=== PATIENT | female | born 1990 | race Caucasian/White ===

== ENCOUNTER 2016-12-31 16:04 | Emergency (ER) | payer OTHER ==
[2016-12-31 16:14] VITALS: BP 119/66; PULSE 72; TEMP 98.3; BMI 21.9
--- NOTE | 2016-12-31 16:36 | PDOC ---
History of Present Illness - General Chief Complaint: Foreign Body (FB) Stated Complaint: EVALUATION Time Seen by Provider: 12/31/16 16:15 - History of Present Illness Initial Comments: 12/31/16 16:31 CHIEF COMPLAINT: eye problem HISTORY OF PRESENT ILLNESS: 26 yo F presents to [facility] with eye irritation. 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 She states she was rubbing her eyes and then later when she went to remove her contact there was no contact to be seen. She states she is concerned that the contact either fell out or went "back in my head." PAST MEDICAL HISTORY: Denies past medical history FAMILY HISTORY: Denies SOCIAL HISTORY:Denies tobacco, alcohol, illicit drug use. SURGICAL HISTORY: Denies ALLERGIES: No known drug allergies REVIEW OF SYSTEMS General/Constitutional: Denies fever or chills. Denies weakness, weight change. HEENT: "My eye feels irritated and I'm worried my contact went to the back." Denies change in vision. Musculoskeletal: Denies joint or muscle swelling or pain. Denies neck or back pain. Skin: Denies any other injury or bruising. PHYSICAL EXAM General Appearance: Well-appearing, appropriately dressed. No apparent distress. HEENT: Flourescein stain exam shows no corneal abrasion. No contact seen to eye. EOMI, PERRLA, normal ENT inspection. No conjunctival pallor. No photophobia, scleral icterus. Respiratory/Chest: Lungs CTAB. Cardiovascular: RRR. S1, S2. Integumentary: Appropriate color, dry, warm. 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 Fully oriented, alert. Appropriate mood/affect. Motor strength 5/5. No appreciable EOM palsy, facial droop or sensory deficit. Past History - Past Medical History Allergies/Adverse Reactions: Allergies Allergy/AdvReac Type Severity Reaction Status Date / Time No Known Allergies Allergy Verified 12/31/16 16:06 Home Medications: Ambulatory Orders Tetrahydroz/Peg 400/Hyprom/Gly [Visine Max Redness Relief Drop] 1 - 2 drop OP Q6H #1 bottle 12/31/16 Asthma: Yes - Immunization History Immunization Up to Date: Yes - Suicide/Smoking/Psychosocial Hx Smoking History: Never smoked Have you smoked in the past 12 months: No Information on smoking cessation initiated: No Hx Alcohol Use: No Drug/Substance Use Hx: No Substance Use Type: Alcohol *Physical Exam - Vital Signs Last Vital Signs Temp Pulse Resp BP Pulse Ox 98.3 F 72 16 119/66 99 12/31/16 16:07 12/31/16 16:07 12/31/16 16:07 12/31/16 16:07 12/31/16 16:07 Medical Decision Making - Medical Decision Making 12/31/16 16:34 26 yo F presents to [facility] with eye irritation. Eye drops as needed for comfort. *DC/Admit/Observation/Transfer Diagnosis at time of Disposition: Irritation of right eye - Discharge Dispostion Disposition: HOME Condition at time of disposition: Stable Admit: No - Prescriptions Prescriptions: Tetrahydroz/Peg 400/Hyprom/Gly [Visine Max Redness Relief Drop] 1 - 2 drop OP Q6H #1 bottle - Referrals Referrals: Rachele Garcia MD [Primary Care Provider] - Fabrizio Stahl MD [Staff Physician] - - Patient Instructions Printed Discharge Instructions: DI for Conjunctivitis, How to Instill Eye Drops Additional Instructions: Please use eye drops as directed. If you develop any change in vision, increased redness/pain/swelling to your eye, please follow up with ophthalmology (referral provided).
== END 2016-12-31 16:39 | disposition home or self-care (01) ==
LOC: JERFT 16:04
DX: H57.11 Ocular pain, right eye (principal); W22.8XXA Striking against or struck by other objects, initial encounter; Y93.89 Activity, other specified; Y92.511 Restaurant or cafe as the place of occurrence of the external cause; Y99.0 Civilian activity done for income or pay
CPT/HCPCS: 99281-25

== ENCOUNTER 2017-03-19 12:41 | Emergency (ER) | payer OTHER ==
[2017-03-19 12:51] VITALS: BP 107/57; PULSE 92; TEMP 100.2; BMI 21.5
[2017-03-19] MEDS ORDERED: IBUPROFEN 400 MG TABLET (FP) PO ONE ×2 (13:30→13:33)
--- NOTE | 2017-03-19 13:31 | PDOC ---
History of Present Illness - General Chief Complaint: Cold Symptoms Stated Complaint: BODYACHES, NAUSEA Time Seen by Provider: 03/19/17 13:05 History Source: Patient Exam Limitations: No Limitations - History of Present Illness Initial Comments: 03/19/17 13:32 Patient here with complaints of acute onset of fever, chills, body aches and malaise since last night. States temperature spiked to 101, took Tylenol with some resolved. Patient states has no sore throat pain or cough, no earache. States has had influenza the past and was concerned may have developed this year. States received a flu shot. Timing/Duration: reports: getting worse, intermittent Severity: reports: mild, moderate Associated Symptoms: reports: chest pain/soreness, fever/chills, muscle aches, nasal congestion Past History - Travel Traveled outside of the country in the last 30 days: No Close contact w/someone who was outside of country & ill: No - Past Medical History Allergies/Adverse Reactions: Allergies Allergy/AdvReac Type Severity Reaction Status Date / Time shrimp Allergy Verified 03/19/17 12:51 Home Medications: Ambulatory Orders Ondansetron [Zofran *Odt*] 4 mg SL PRN PRN #14 od.tablet 03/19/17 Asthma: Yes COPD: No - Immunization History Immunization Up to Date: Yes - Suicide/Smoking/Psychosocial Hx Smoking History: Never smoked Have you smoked in the past 12 months: No Information on smoking cessation initiated: No Hx Alcohol Use: No Drug/Substance Use Hx: No Substance Use Type: Alcohol Review of Systems - Review of Systems Able to Perform ROS?: Yes Is the patient limited Hungarian proficient: Yes Constitutional: Yes: Symptoms Reported, See HPI, Fever, Malaise, Weakness HEENTM: Yes: Symptoms Reported, See HPI Respiratory: No: Symptoms reported ABD/GI: Yes: Symptoms Reported, See HPI, Nausea. No: Vomiting : No: Symptoms Reported Integumentary: Yes: Symptoms Reported All Other Systems: Reviewed and Negative *Physical Exam - Vital Signs Last Vital Signs Temp Pulse Resp BP Pulse Ox 100.2 F H 92 H 18 107/57 100 03/19/17 12:49 03/19/17 12:49 03/19/17 12:49 03/19/17 12:49 03/19/17 12:49 - Physical Exam General Appearance: Yes: Nourished, Appropriately Dressed, Apparent Distress, Mild Distress HEENT: positive: AGAPITO, Normal ENT Inspection, TMs Normal, Pharynx Normal Neck: positive: Supple, Lymphadenopathy (L). negative: Tender, Lymphadenopathy (R) Respiratory/Chest: positive: Lungs Clear Cardiovascular: positive: Regular Rate Gastrointestinal/Abdominal: positive: Normal Bowel Sounds, Soft. 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, Fully Oriented, Alert, Normal Mood/ Affect, Normal Response, Motor Strength /5 Progress Note - Progress Note Progress Note: Influenza test negative, we'll treat for mild viral illness *DC/Admit/Observation/Transfer Diagnosis at time of Disposition: Systemic viral illness - Discharge Dispostion Disposition: HOME Condition at time of disposition: Stable Admit: No - Referrals Referrals: Sharon Coats MD [Primary Care Provider] - - Patient Instructions Additional Instructions: Rest, drink lots of fluids: Teas, water, soups Olamide tank, carbonated beverages for the bubbles May try peppermint teas Avoid heavy , spicy or fatty foods until symptoms have resolved Avoid contact with others until fevers and symptoms resolved Lots of handwashing and good hygiene Continue [id number] medications for symptomatic relief Tylenol or Motrin for fever and pain May use Zofran-one tablet dissolved on tongue as needed for nauseousness. May repeat times one every 8 hours Followup with private physician in one to 2 days as needed Return to emergency department for worsened symptoms, fevers, dehydration - Post Discharge Activity Forms/Work/School Notes: Back to Work
[2017-03-19] MEDS ORDERED: ONDANSETRON *ODT* 4 MG TABLET ONE (14:20)
== END 2017-03-19 14:25 | disposition home or self-care (01) ==
LOC: JERFT 12:41
DX: B34.9 Viral infection, unspecified (principal)
CPT/HCPCS: 87804; 99281-25